=== PATIENT | male | born 1975 ===

== ENCOUNTER 2024-01-06 04:23 | Day surgery (SDC) | payer OTHER ==
[2024-01-02 16:15] VITALS: BMI 29.7
[2024-01-06] MEDS ORDERED: FENTANYL CITRATE/PF 50 MCG/ML VIAL ONE ×2 (14:58→15:23)
[2024-01-06] MEDS ORDERED: MIDAZOLAM HCL 2 MG/2 ML SINGLE DOSE VIAL ONE ×2 (14:58→15:23)
[2024-01-06] MEDS ORDERED: ONDANSETRON 4 MG/2 ML VIAL ONE (14:58)
[2024-01-06 15:56] VITALS: RESP 18
[2024-01-06 17:07] VITALS: BP 109/59; PULSE 59; TEMP 97.7
== END 2024-01-06 16:40 | disposition home or self-care (01) ==
LOC: JASU-SURG 04:23
PROVIDERS: ATTEND Urology
PROC: 0TF3XZZ Fragmentation in Right Kidney Pelvis, External Approach (ICD-10-PCS; principal; 2024-01-06 14:30)
DX: N20.0 Calculus of kidney (principal)